=== PATIENT | male | born 1945 | race Caucasian/White ===

== ENCOUNTER → 2023-02-09 | Outpatient (CLI) | payer MEDICARE, SELFPAY ==
--- NOTE | 2023-02-09 10:34 | RAD_ITS ---
STUDY: X-RAY - PELVIS REASON FOR EXAM: Male, 77 years old. PAIN TECHNIQUE: One view of the pelvis was obtained. COMPARISON: None. FINDINGS: There is a non-specific bowel gas pattern. Normal visualized soft tissue structures. Normal bilateral iliac wings, sacroiliac joints and visualized sacrum. Normal visualized bilateral superior and inferior pubic rami. There are degenerative changes of the pubic symphysis with articular narrowing and sclerosis. Normal ischial tuberosities. Normal visualized right femoral head. Normal right acetabulum. There is mild articular joint space narrowing of the right hip. Normal visualized left femoral head. Normal left acetabulum. There is mild articular joint space narrowing of the left hip. RAD/Pelvis 1 or 2 Views IMPRESSION: 1. Mild arthrosis of the pubic symphysis. 2. Mild bilateral hip arthrosis. Electronically Signed: Dimitris Andres MD at 19:29 EST ,
[2023-02-09 12:18] LABS: Erythrocyte Sedimentation Rate 8 mm/hr (0-20)
[2023-02-09 12:21] LABS: Absolute Lymphocyte Count 2.49 X10^3/uL (0.83-4.51); Absolute Neutrophil Count 3.9 X10^3/uL (2.0-7.7); Basophil# 0.06 X10^3/uL; Basophil% 0.8 % (0-1); Eosinophils% 1.4 % (0-5); Hematocrit 44.5 % (40-54); Hemoglobin 14.5 g/dL (13.0-16.5); Lymphocyte # 2.49 X10^3/ul (0.83-4.51); Lymphocyte % 33.7 % (19-41); Mean Corp Hgb Conc 32.6 g/dL (32-36); Mean Corpuscular Hgb 30.4 pg (27.0-32.0); Mean Corpuscular Volume 93.3 fL (80-94); Mean Platelet Vol. 10.6 fl (6.2-12.0); Monocyte% 10.8 % (0-10); NRBC Flagged by Analyzer 0 % (0-5); Neutrophil # 3.89 X10^3/uL (2.7-7.7); Neutrophil % 52.8 % (47-70); Platelet Count 246 K/mm3 (150-450); RBC Distribution Width CV 13.6 % (11.6-14.6); RBC Distribution Width SD 46.4 fl (35.1-43.9); Red Blood Count 4.77 M/mm3 (4.6-6.2); White Blood Count 7.4 K/mm3 (4.4-11.0)
[2023-02-09 12:43] LABS: AST(SGOT) 22 U/L (15-37); Alanine Aminotransfer ALT/SGPT 38 U/L (16-61); Albumin, Serum 3.8 g/dL (3.2-5.0); Alkaline Phosphatase 43 U/L (45-117); Anion Gap 7 (5-15); BUN 17 mg/dL (7-18); BUN/Creat Ratio 18.9 RATIO (10-20); CRP < 2.90 mg/L (0.0-3.0); Calcium,Total 8.8 mg/dL (8.5-10.1); Chloride 111 mmol/L (98-107); EST Glomerular Filtration Rate 87 mL/min (>60); Est Glom Filt Rate - Afr Amer 105 mL/min (>60); Globulin 3.8 g/dL (2.2-4.2); Glucose 79 mg/dL (74-106); Potassium 3.9 mmol/L (3.5-5.1); Protein, Total 7.6 g/dL (6.4-8.2); Rheumatoid Factor < 10.0 IU/mL (<15); Sodium Level 141 mmol/L (136-145)
[2023-02-09 13:11] LABS: Hepatitis B Surface Antibody Non-Reactive; Hepatitis B Surface Antigen Non-Reactive (Nonreactive); Hepatitis C Antibody Non-Reactive (Nonreactive)
[2023-02-18 00:06] LABS: CCP IgG Antibodies 1 units (0-19); G6PD Quant Test 284 (127-427); HLA B27 Negative (.); Red Blood Cell Count Test/G6PD 4.79 x10E6/uL (4.14-5.80)
== END | disposition home or self-care (01) ==
PROVIDERS: PCP Family Medicine; Referring Provider Internal Medicine Rheumatology; Visit Provider Internal Medicine Rheumatology
DX: M06.4 Inflammatory polyarthropathy (principal); Z79.899 Other long term (current) drug therapy
CPT/HCPCS: 36415; 72170; 80053; 81374; 82955; 85025; 85652; 86140; 86200; 86431; 86706; 86803; 87340

== ENCOUNTER → 2023-08-09 | Outpatient (CLI) | payer MEDICARE, SELFPAY ==
[2023-08-09 15:24] LABS: Absolute Lymphocyte Count 3.13 X10^3/uL (0.83-4.51); Absolute Neutrophil Count 4.2 X10^3/uL (2.0-7.7); Basophil# 0.08 X10^3/uL; Basophil% 0.9 % (0-1); Eosinophils% 2.4 % (0-5); Hematocrit 47.5 % (40-54); Hemoglobin 15.1 g/dL (13.0-16.5); Lymphocyte # 3.13 X10^3/ul (0.83-4.51); Lymphocyte % 36.9 % (19-41); Mean Corp Hgb Conc 31.8 g/dL (32-36); Mean Corpuscular Hgb 30.1 pg (27.0-32.0); Mean Corpuscular Volume 94.6 fL (80-94); Mean Platelet Vol. 10.7 fl (6.2-12.0); Monocyte# 0.84 X10^3/uL; Monocyte% 9.9 % (0-10); NRBC Flagged by Analyzer 0 % (0-5); Neutrophil # 4.21 X10^3/uL (2.7-7.7); Neutrophil % 49.5 % (47-70); Platelet Count 242 K/mm3 (150-450); RBC Distribution Width CV 13.7 % (11.6-14.6); RBC Distribution Width SD 47.8 fl (35.1-43.9); Red Blood Count 5.02 M/mm3 (4.6-6.2); White Blood Count 8.5 K/mm3 (4.4-11.0)
[2023-08-09 20:33] LABS: ALB/GLOB Ratio 1.1 RATIO (0.9-2.4); AST(SGOT) 21 U/L (15-37); Alanine Aminotransfer ALT/SGPT 49 U/L (16-61); Alkaline Phosphatase 45 U/L (45-117); Anion Gap 7 (5-15); BUN 26 mg/dL (7-18); BUN/Creat Ratio 26.6 RATIO (10-20); Chloride 111 mmol/L (98-107); Creatinine, Serum 0.98 mg/dL (0.70-1.30); EST Glomerular Filtration Rate 79 mL/min (>60); Est Glom Filt Rate - Afr Amer 96 mL/min (>60); Globulin 3.6 g/dL (2.2-4.2); Glucose 85 mg/dL (74-106); Potassium 3.7 mmol/L (3.5-5.1); Protein, Total 7.6 g/dL (6.4-8.2); Sodium Level 141 mmol/L (136-145)
== END | disposition home or self-care (01) ==
LOC: MTLAB 11:45
PROVIDERS: PCP Family Medicine; Referring Provider Internal Medicine Rheumatology; Visit Provider Internal Medicine Rheumatology
DX: M06.4 Inflammatory polyarthropathy (principal); Z79.899 Other long term (current) drug therapy
CPT/HCPCS: 36415; 80053; 85025